=== PATIENT | male | born 1975 | race Caucasian/White ===

== ENCOUNTER 2023-04-13 17:26 | Emergency (ER) | payer OTHER, SELFPAY ==
[2023-04-13 17:29] VITALS: BP 169/101; PULSE 91; RESP 18; TEMP 36.4; O2SAT 97
--- NOTE | 2023-04-13 17:45 | ED.EYEPROB ---
HPI - Eye Problem General Chief complaint: Eye Problems Stated complaint: left eye injury Time Seen by Provider: 04/13/23 17:34 History of Present Illness HPI Narrative: 47-year-old male presents to the emergency room for evaluation of a left eye injury. Patient states while at work a wrench slipped from the bolt and struck him in the left eye. Reports left eye sensitivity to light. Eye is red with no discharge. Tetanus immunization is up-to-date. Denies vision changes or vision loss. No blurred vision double vision or floaters. Patient presented to the ER wearing sunglasses. Related Data Allergies Allergy/AdvReac Type Severity Reaction Status Date / Time No Known Allergies Allergy Verified 04/13/23 17:42 Review of Systems Review of Systems: All systems reviewed & are unremarkable except as noted in HPI and below Exam Const: General: healthy appearing, no acute distress and alert HENMT: Head: normal to inspection Eyes: Pupils: Equal, round and reactive pupils present EOM: EOMs intact bilaterally Other: Corneal abrasions to the 8 and 10 o'clock position of the left eye Resp: Effort & Inspection: normal respiratory effort Cardio: Rate: regular rate Rhythm: regular rhythm Course Vital Signs Vital signs: Vital Signs Temperature 36.4 C 04/13/23 17:29 Pulse Rate 91 04/13/23 17:29 Respiratory Rate 18 04/13/23 17:29 Blood Pressure 169/101 H 04/13/23 17:29 Pulse Oximetry 97 04/13/23 17:29 Oxygen Delivery Room Air 04/13/23 17:29 Temperature 36.4 C 04/13/23 17:29 Pulse Rate 91 04/13/23 17:29 Respiratory Rate 18 04/13/23 17:29 Blood Pressure 169/101 H 04/13/23 17:29 Pulse Oximetry 97 04/13/23 17:29 Oxygen Delivery Room Air 04/13/23 17:29 Procedures Other Procedure Procedure 1: Other Procedure: Left eye anesthetized with tetracaine. Fluorescein reuptake noted to the 8 and 10:00 positions of the left eye. Patient tolerated procedure well. Fluorescein was irrigated with sterile water. Discharge Plan Discharge Clinical Impression: Corneal abrasion Qualifiers: Encounter type: initial encounter Laterality: left Qualified Code(s): S05.02XA - Injury of conjunctiva and corneal abrasion without foreign body, left eye, initial encounter Patient Disposition: Home, Self-Care Condition: Stable Instructions: Antibiotic Form, Corneal Abrasion (ED) Prescriptions: New erythromycin 5 mg/gram (0.5 %) ointment 1 applic LEFT EYE DAILY Qty: 3.5 0RF Follow-up/Referrals: PHYSICIAN NOT ON STAFF,NONSTAFF [Primary Care Provider] - Time of Disposition: 17:44
== END 2023-04-13 18:38 | disposition home or self-care (01) ==
LOC: ANHED 18:20
PROVIDERS: Emergency Provider Nurse Practitioner Family
DX: S05.02XA Injury of conjunctiva and corneal abrasion without foreign body, left eye, initial encounter (principal); W27.0XXA Contact with workbench tool, initial encounter
CPT/HCPCS: 99283